=== PATIENT | female | born 1960 | race African-American/Black ===

== ENCOUNTER 2023-03-19 06:29 | Emergency (ER) | payer OTHER ==
--- OUTSIDE RECORDS SUMMARY | 2023-03-19 06:32 | XMS REPORT | Continuity of Care Document ---
:1960 Author Organization [facility] t Address [address] [facility] [address] [place] [address] Care Team Providers Name Role Phone [phone] Primary Care Physician Unavailable SARAH GONZALEZ Attending Clinician Unavailable CYNDIE ADAM Attending Clinician Unavailable ELFEGO WESTFALL Attending Clinician Unavailable Referred, Self Attending Clinician Unavailable Files, Tegan K Attending Clinician Unavailable Referred, Self Admitting Clinician Unavailable FILES, TEGAN K Admitting Clinician Unavailable Files, Tegan K Admitting Clinician Unavailable Payers Payer Name Policy Type Policy Number Effective Date Expiration Date S [place] POS [id number] 2015 00:00:00 [employer] O [id number] 2021 00:00:00 Problems This patient has no known problems. Allergies, Adverse Reactions, Alerts Allergy Allergy Status Severity Reaction(s) Onset Inactive Treating Comm ents Source Name Type Date Date Clinician PROPOXYP DRUG Active MD OROSCO 6 Anderso N-ACETAM 00:00: n INOPHEN 00 PROPOXYP DRUG Active MD HENE 6 Anderso N-ACETAM 00:00: n INOPHEN 00 PROPOXYP DRUG Active MD OROSCO 6 Anderso N-ACETAM 00:00: n INOPHEN 00 PROPOXYP DRUG Active MD ANA LUISA 6 Anderso N-ACETAM 00:00: n INOPHEN 00 PROPOXYP DRUG Active MD OROSCO 6 Anderso N-ACETAM 00:00: n INOPHEN 00 PROPOXYP DRUG Active [facility] 10-22 Anderso N-ACETAM 00:00: n INOPHEN 00 PROPOXYP DRUG Active [facility] 10-22 Anderso N-ACETAM 00:00: n INOPHEN 00 PROPOXYP DRUG Active [facility] 10-22 Anderso N-ACETAM 00:00: n INOPHEN 00 PROPOXYP DRUG Active [facility] 10-22 Anderso N-ACETAM 00:00: n INOPHEN 00 PROPOXYP DRUG Active [facility] 10-22 Anderso N-ACETAM 00:00: n INOPHEN 00 PROPOXYP DRUG Active [facility] 10-22 Anderso N-ACETAM 00:00: n INOPHEN 00 PROPOXYP DRUG Active [facility] 10-22 Anderso N-ACETAM 00:00: n INOPHEN 00 PROPOXYP DRUG Active [facility] 10-22 Anderso N-ACETAM 00:00: n INOPHEN 00 PROPOXYP DRUG Active [facility] 10-22 Anderso N-ACETAM 00:00: n INOPHEN 00 PROPOXYP DRUG Active [facility] 10-22 Anderso N-ACETAM 00:00: n INOPHEN 00 PROPOXYP DRUG Active [facility] 10-22 Anderso N-ACETAM 00:00: n INOPHEN 00 PROPOXYP DRUG Active [facility] 10-22 Anderso N-ACETAM 00:00: n INOPHEN 00 PROPOXYP DRUG Active [facility] 10-22 Anderso N-ACETAM 00:00: n INOPHEN 00 PROPOXYP DRUG Active [facility] 10-22 Anderso N-ACETAM 00:00: n INOPHEN 00 PROPOXYP DRUG Active [facility] 10-22 Anderso N-ACETAM 00:00: n INOPHEN 00 PROPOXYP DRUG Active [facility] 10-22 Anderso N-ACETAM 00:00: n INOPHEN 00 PROPOXYP DRUG Active [facility] 10-22 Anderso N-ACETAM 00:00: n INOPHEN 00 PROPOXYP DRUG Active MD OROSCO 10-22 Anderso N-ACETAM 00:00: n INOPHEN 00 PROPOXYP DRUG Active MD OROSCO 6 Anderso N-ACETAM 00:00: n INOPHEN 00 PROPOXYP DRUG Active MD OROSCO 6 Anderso N-ACETAM 00:00: n INOPHEN 00 PROPOXYP DRUG Active MD OROSCO 10-22 Anderso N-ACETAM 00:00: n INOPHEN 00 PROPOXYP DRUG Active MD OROSCO 10-22 Anderso N-ACETAM 00:00: n INOPHEN 00 PROPOXYP DRUG Active MD OROSCO 10-22 Anderso N-ACETAM 00:00: n INOPHEN 00 PROPOXYP DRUG Active MD OROSCO 10-22 Anderso N-ACETAM 00:00: n INOPHEN 00 PROPOXYP DRUG Active MD OROSCO 10-22 Anderso N-ACETAM 00:00: n INOPHEN 00 PROPOXYP DRUG Active MD OROSCO 10-22 Anderso N-ACETAM 00:00: n INOPHEN 00 PROPOXYP DRUG Active MD OROSCO 10-22 Anderso N-ACETAM 00:00: n INOPHEN 00 PROPOXYP DRUG Active MD OROSCO 6 Anderso N-ACETAM 00:00: n INOPHEN 00 PROPOXYP DRUG Active MD OROSCO 10-22 Anderso N-ACETAM 00:00: n INOPHEN 00 PROPOXYP DRUG Active MD OROSCO Anderso N-ACETAM 00:00: n INOPHEN 00 PROPOXYP DRUG Active MD OROSCO 10-22 Anderso N-ACETAM 00:00: n INOPHEN 00 PROPOXYP DRUG Active MD OROSCO 6 Anderso N-ACETAM 00:00: n INOPHEN 00 Medications This patient has no known medications. Procedures This patient has no known procedures. Encounters Start End Encounter Admission Attending Care Care Encounter Source Date/Time Date/Time Type Type Clinicians Facility Department ID 2019-11-01 Outpatient BELLE ODONNELL [id number] 08:07:23 Anderso n 2022-06-06 2022-06-06 Outpatient DIEGO GONZALEZ, MDA MDA [id number] 08:38:57 08:38:57 SARAH Mendel o n 2022-05-22 2022-05-22 Outpatient DIEGO GONZALEZ, MDA MDA [id number] MD 10:15:31 23:59:00 SARAH Mendel o n 2022-05-22 2022-05-22 Outpatient DIEGO GONZALEZ, MDA MDA [id number] MD 11:10:22 12:16:42 SARAH Mendel o n 2022-05-22 2022-05-22 Outpatient DIEGO GONZALEZ, MDA MDA [id number] 08:53:34 10:14:00 SARAH Mendel o n 2022-05-22 2022-05-22 Outpatient DIEGO GONZALEZ, MDA MDA [id number] MD 08:04:49 08:50:41 SARAH Mendel o n 2022-05-19 2022-05-19 Outpatient DIEGO ADAM, MDA MDA [id number] MD 12:53:15 12:53:15 CYNDIE Mendel o n 2022-05-19 2022-05-19 Outpatient DIEGO ADAM, MDA MDA [id number] MD 12:53:11 12:53:11 CYNDIE Mendel o n 2022-05-19 2022-05-19 Outpatient DIEGO ADAM, MDA MDA [id number] MD 12:53:08 12:53:08 CYNDIE Mendel o n 2022-05-19 2022-05-19 Outpatient DIEGO ADAM, MDA MDA [id number] MD 12:53:04 12:53:04 CYNDIE Mendel o n 2022-05-19 2022-05-19 Outpatient DIEGO ADAM, MDA MDA [id number] MD 12:53:01 12:53:01 CYNDIE Mendel o n 2022-05-19 2022-05-19 Outpatient DIEGO VITALEADAM, MDA MDA [id number] MD 12:52:57 12:52:57 CYNDIE Mendel o n 2022-05-06 2022-05-06 Outpatient DIEGO ADAM, MDA MDA [id number] MD 13:03:32 15:41:54 CYNDIE Mendel o n 2022-05-06 2022-05-06 Outpatient EL POTTER, MDA MDA [id number] 10:36:57 10:36:57 ELFEGO Mendel o n 2022-05-05 2022-05-05 Outpatient EL POTTER, MDA MDA [id number] 13:58:06 23:59:00 ELFEGO Mednel o n 2022-05-05 2022-05-05 Outpatient EL POTTER, MDA MDA [id number] 14:40:23 14:40:23 ELFEGO Mendel o n 2021-11-26 2021-11-26 Outpatient EL Referred, [facility] HAYLEE [id number] [facility] 08:00:00 08:00:[address] [facility] 2021-04-23 2021-04-23 Outpatient EL Referred, [facility] HAYLEE [id number] [facility] 12:00:00 12:00:[address] [facility] 2020-03-27 2020-03-27 [facility] HAYLEE G00 [id number] [facility] 12:00:00 12:00:00 34 [facility] 2019-11-01 2019-11-01 Outpatient EL ADAM, MDA MDA [id number] 10:00:00 23:59:00 CYNDIE Mendel o n 2019-11-01 2019-11-01 Outpatient EL ADAM, MDA MDA [id number] 13:10:27 13:38:15 CYNDIE Mendel o n 2019-11-01 2019-11-01 Outpatient EL POTTER, MDA MDA [id number] 06:48:31 09:59:00 ELFEGO Mendel o n 2019-11-01 2019-11-01 Outpatient EL ADAM, MDA MDA [id number] 07:50:43 07:50:43 CYNDIE Mendel o n Results This patient has no known results.
--- NOTE | 2023-03-19 06:59 | ER ---
Nurse's Notes [facility] Name: Christina Lin Age: 63 yrs Sex: Female : 1960 Arrival Date: 03/19/2023 Time: 06:29 Bed IW1 Private MD: Diagnosis: Contact with and (suspected) exposure to meningococcus Presentation: 03/19 06:36 Chief complaint: Patient states: EXPOSURE TO PATIENT WITH MENINGITIS. Coronavirus rv screen: At this time, the client does not indicate any symptoms associated with coronavirus-19. Ebola Screen: No symptoms or risks identified at this time. Initial Sepsis Screen: Does the patient meet any 2 criteria? No. Patient's initial sepsis screen is negative. Does the patient have a suspected source of infection? No. Patient's initial sepsis screen is negative. Risk Assessment: Do you want to hurt yourself or someone else? Patient reports no desire to harm self or others. Onset of symptoms was March 19, 2023. 06:36 Method Of Arrival: Ambulatory rv 06:36 Acuity: Unassigned rv Triage Assessment: 06:37 General: Appears in no apparent distress. Behavior is calm, cooperative. Pain: Denies rv pain. Neuro: Level of Consciousness is awake, alert, obeys commands, Oriented to person, place, time, situation. Cardiovascular: Capillary refill < 3 seconds Patient's skin is warm and dry. Historical: - Allergies: 06:37 No Known Allergies; rv - PMHx: 06:37 None; rv - PSHx: 06:37 None; rv - Immunization history:: Adult Immunizations up to date. - Social history:: Smoking status: Patient denies any tobacco usage or history of. - Family history:: not pertinent. Screenin:20 [facility] ED Fall Risk Assessment (Adult) History of falling in the last 3 months, ap3 including since admission No falls in past 3 months (0 pts). Abuse screen: Denies threats or abuse. Nutritional screening: No deficits noted. Tuberculosis screening: No symptoms or risk factors identified. Vital Signs: 06:36 BP 126 / 86; Pulse 71; Resp 17; Temp 98; Pulse Ox 100% ; rv ED Course: 06:32 Patient arrived in ED. jj6 06:37 Triage completed. rv 06:38 Arm band placed on right wrist. rv 06:46 Potepalov, Gaurav, MD is Attending Physician. sp4 07:20 Patient has correct armband on for positive identification. Provided Education on: ap3 discharge instructions. 07:20 No provider procedures requiring assistance completed. Patient did not have IV access ap3 during this emergency room visit. Administered Medications: 06:54 Drug: Ciprofloxacin PO 1 grams PO once Route: PO; ap3 Medication: 07:20 VIS not applicable for this client. ap3 Outcome: 06:59 Discharge ordered by . sp4 07:20 Discharged to home ap3 07:20 Condition: good 07:20 Discharge instructions given to patient, Instructed on discharge instructions, follow up and referral plans. Demonstrated understanding of instructions, follow-up care, 07:21 Patient left the ED. ap3 Signatures: Reny De La Garza RN RN ap3 Jerrod Cruz RN RN rv Shalonda Shaffer jj6 Gaurav Ojeda MD MD sp4
--- NOTE | 2023-03-19 07:00 | EDPHYS ---
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 06:52 Patient was exposed to a case of bacterial meningitis yesterday 3 to 4 PM in a 4 hospital. Patient is here for antibiotic prophylaxis. Asymptomatic at this time. Historical: - Allergies: 06:37 No Known Allergies; rv - PMHx: 06:37 None; rv - PSHx: 06:37 None; rv - Immunization history:: Adult Immunizations up to date. - Social history:: Smoking status: Patient denies any tobacco usage or history of. - Family history:: not pertinent. ROS: 06:57 Constitutional: Negative for fever, chills, and weight loss, sp4 06:57 All other systems are negative, Exam: 06:57 Constitutional: This is a well developed, well nourished patient who is awake, alert, sp4 and in no acute distress. Head/Face: Normocephalic, atraumatic. Eyes: Pupils equal round and reactive to light, extra-ocular motions intact. Lids and lashes normal. Conjunctiva and sclera are not injected. Cornea within normal limits. Periorbital areas with no swelling, redness, or edema. ENT: Nares patent. No nasal discharge, no septal abnormalities noted. Tympanic membranes are normal and external auditory canals are clear. Oropharynx with no redness, swelling, or masses, exudates, or evidence of obstruction, uvula midline. Mucous membranes moist. Neck: Trachea midline, no thyromegaly or masses palpated, and no cervical lymphadenopathy. Supple, full range of motion without nuchal rigidity, or vertebral point tenderness. Chest/axilla: Normal chest wall appearance and motion. Nontender with no deformity. No lesions are appreciated. Cardiovascular: Regular rate and rhythm with a normal S1 and S2. No gallops, murmurs, or rubs. Normal PMI, no JVD. No pulse deficits. Respiratory: Lungs have equal breath sounds bilaterally, clear to auscultation and percussion. No rales, rhonchi or wheezes noted. No increased work of breathing, no retractions or nasal flaring. Abdomen/GI: Soft, non-tender, with normal bowel sounds. No distension or tympany. No guarding or rebound. No evidence of tenderness throughout. Back: No spinal tenderness. No costovertebral tenderness. Skin: Warm, dry with normal turgor. Normal color with no rashes, no lesions, and no evidence of cellulitis. MS/ Extremity: Pulses equal, no cyanosis. Neurovascular intact. Full, normal range of motion. Neuro: Awake and alert, GCS 15, oriented to person, place, time, and situation. Cranial nerves II-XII grossly intact. Motor strength 5/5 in all extremities. Sensory grossly intact. Psych: Awake, alert, with orientation to person, place and time. Behavior, mood, and affect are within normal limits Vital Signs: 06:36 BP 126 / 86; Pulse 71; Resp 17; Temp 98; Pulse Ox 100% ; rv MDM: 06:48 Patient medically screened. sp4 06:57 Differential Diagnosis altered mental status, sepsis, flu. Data reviewed: vital signs, sp4 nurses notes. ED course: Antibiotic prophylaxis. Patient will be given ciprofloxacin 1 g p.o. based on CDC guidelines. No further intervention indicated. . Administered Medications: 06:54 Drug: Ciprofloxacin PO 1 grams PO once Route: PO; ap3 Disposition Summary: 03/19/23 06:59 Discharge Ordered Notes: Location: Home sp4 Problem: new sp4 Symptoms: are unchanged sp4 Condition: Stable sp4 Diagnosis - Contact with and (suspected) exposure to meningococcus sp4 Followup: sp4 - With: Private Physician - When: As needed - Reason: Discharge Instructions: - Discharge Summary Sheet sp4 - Droplet Precautions, [id number] sp4 Forms: - Patient Portal Instructions sp4 Signatures: Reny De La Garza RN RN ap3 Jerrod Cruz RN RN rv Gaurav Ojeda MD MD sp4
[2023-03-19] MEDS ORDERED: CIPROFLOXACIN HCL 500 MG TAB ONE (07:04)
[2023-03-19 07:57] VITALS: BP 126/86; TEMP 98; O2SAT 100
== END 2023-03-19 07:21 | disposition home or self-care (01) ==
LOC: ER 06:29
DX: Z20.811 Contact with and (suspected) exposure to meningococcus (principal)
CPT/HCPCS: 99283